=== PATIENT | female | born 1990 | race Two or more races ===

== ENCOUNTER 2017-05-06 15:29 | Emergency (ER) | payer OTHER ==
[~2017-05-06] VITALS: Ht 162.6 cm; Wt 54.4 kg
[2017-05-06 15:32] VITALS: BP 116/67
--- NOTE | 2017-05-06 16:50 | NUR ---
MEDICALLY CLEARED FOR BOOKING. D/C TO PD. STABLE CONDITION.
== END 2017-05-06 16:52 ==
LOC: ER 15:32
DX: M25.572 Pain in left ankle and joints of left foot (principal); L03.116 Cellulitis of left lower limb; F17.200 Nicotine dependence, unspecified, uncomplicated
CPT/HCPCS: A4606; Z7610